=== PATIENT | male | born 1985 | race African-American/Black ===

== ENCOUNTER → 2016-10-06 | Outpatient (CLI) | payer BC ==
[~2016-10-06] MED LIST: ALBUAER2 INH; LISI20TA3 PO
[2016-10-06 12:04] LABS: ALT/SGPT 63 U/L (12-78); BLOOD UREA NITROGEN 7 mg/dl (7-18); BUN/CREATININE RATIO 5.1 (10-20); CARBON DIOXIDE 32 mmol/L (21-32); CHLORIDE 103 mmol/L (98-107); CHOLESTEROL 154 mg/dl (0-200); GLUCOSE 97 mg/dl (70-99); POTASSIUM 3.8 mmol/L (3.5-5.1); SODIUM 141 mmol/L (136-145)
[2016-10-06 12:07] LABS: ALB/GLOB RATIO 1.1 (0.9-2); ALKALINE PHOSPHATASE 56 U/L (45-117); AST/SGOT 32 U/L (15-37); CHOLESTEROL/HDL RATIO 4.5; HDL CHOLESTEROL 34 mg/dl; LDL CHOLESTEROL CALCULATED 77 mg/dl; TRIGLYCERIDES 216 mg/dl (0-150); VERY LOW DENSITY LIPOPROT CALC 43 mg/dl
[2016-10-06 13:19] LABS: CALCIUM 9.2 mg/dl (8.5-10.1)
== END | disposition home or self-care (01) ==
LOC: C.LAB1850 10:25
PROVIDERS: ATTEND Internal Medicine
DX: I10 Essential (primary) hypertension (principal)

== ENCOUNTER → 2016-11-12 | Outpatient (CLI) | payer BC ==
[~2016-11-12] VITALS: Ht 182.9 cm; Wt 117.4 kg
[2016-11-12 10:12] VITALS: BP 139/81; PULSE 71; Ht 182.9 cm; Wt 117.4 kg
== END | disposition home or self-care (01) ==
LOC: C.NEUR 09:05
PROVIDERS: ATTEND Internal Medicine Pulmonary Disease
DX: G47.33 Obstructive sleep apnea (adult) (pediatric) (principal)

== ENCOUNTER → 2016-12-24 | Outpatient (CLI) | payer BC ==
--- NOTE | 2016-12-25 06:38 | PAP/PSG TECHNICIAN REPORT ---
[facility] [address] Supervisor Chassis Assembly Polysomnogram Report Study name: None Report date: 12/25/2016 Study date: 12/24/2016 Referring Physician: MATTHEW SCHUSTER DO, DO Name: CICI DIAZ Interpreting Physician: Matthew Schuster D.O. Date of : 1985 Supervisor Chassis Assembly: Marianna Alvarado [facility] [place]. Sex: Male Age: 31 Study Type: PSG Weight: 259 lbs Height: 31 years, Height 6' 0" BMI: 35.12 Medications: BREO ELLIPTA 100-25 MCG/INH, PROAIR HFA 108 (90 BASE) MCG/ACT, LISINOPRIL 40 MG Patient History 31 yr-old male here for a baseline/split study. He has a history of some daytime sleepiness, very loud snoring, and witnessed apneas. His Casanova scale is 5. The test was started on room air. ETCO2 testing was not utilized during this study. Room 3 Parameters Monitored NPSG: E1-M2, E2-M1, Fp1-M2, Fp2-M1, F3-M2, F4-M2, F4-M1, C3-M2, C4-M2, C4-M1, O1-M2, O2-M2, O2-M1, T3-M2, T4-M1, P3-M2, P4-M1, CHIN1, CHIN2, HR, EKG, Legs, PFLOW, SNOR, FLOW, CFLOW, Tidal Volume, THOR, ABDO, SpO2, PLTH, CPRESS, ETCO2 Wave, ETCO2, pH Sleep Architecture Sleep Stages Time at Lights Off 11:05:44 PM STAGES Time (min.) TST (%) Time at Lights On 5:31:14 AM Wake 108.5 -- Total Recording Time (TRT) 385.50 min. N1 24.0 9 Total Sleep Period (TSP) 355.5 min. N2 173.5 63 Total Sleep Time (TST) 277.0min. N3 26.0 9 Awake Time 108.5 min. REM 53.5 19 Wake after Sleep Onset 78.5 min. Sleep Efficiency (SE) 72 % Sleep Onset Latency (MARGARITO) 30.0 min. Number of Stage 1 Shifts None Awakenings 11 Stage Changes 57 Number of REM periods 6 REM 53.5 19 REM Latency 72.0 min. NREM 223.5 81 Body Position Analysis Supine Right Left Side Prone Vertical Total Sleep Time (min.) 75.9 161.2 102.5 263.63 6.5 0.0 Total Sleep Time (%) 5% 58% 37% 95 0% N/A% Total Sleep Time REM (min.) 0.0 12.0 41.5 None 0.0 0.0 Total Sleep Time NREM (min.) 13.4 149.2 61.0 None 0.0 0.0 Intermittent Wake (min.) 62.6 31.7 7.7 None 6.5 0.0 Total Sleep Period (%) 16% None None None None None Arousals Myoclonus (PLM) * Events Count Index Events Count Index Spontaneous 6 1 Events Awake (PLMW) 81 44.8 Respiratory 26 5.8 Events Asleep w/ Arousal (PLMA) 12 2.6 PLM 11 3 Events Asleep w/o Arousal (PLMS) 65 14.1 Snoring 11 2 Total Asleep 77 16.7 Total 53 11 Total 158 25 Respiratory Analysis * CA OA MA CH H RERA Total Count 0 44 0 0 34 1 78 Index 0.0 9.5 0.0 0 7.4 0 17.1 Mean Duration 0.0 24.9 0.0 0.00 29.0 22.5 26.6 Longest Duration 0.0 79.8 0.0 0.00 0.0 22.5 79.8 Respiratory Event Summary Total Supine ~Supine Right Left Prone REM NREM Apneas Count 44 6 38 15 23 N/A 32 12 Index 9.5 27 9 5.6 13.5 N/A 36 3 Hypopneas (4% Desat) Count 34 9 25 4 21 N/A 18 16 Index 7.4 40.4 6 1.5 12.3 N/A 20.2 4.3 Apneas & All Hypopneas Count 78 15 63 19 44 N/A 50 28 Index 16.9 67 14 7 26 N/A 56.1 7.5 Respiratory Events (Electric Bath Attendant+All Hyp+RERA) Count 78 15 64 20 44 N/A 50 28 Index 17.1 67 15 7.4 25.8 N/A 56.1 7.8 Respiratory Related Arousal Count 26 15 19 8 11 N/A 14 13 Index 5.8 36 4 3 6 N/A 16 3 Snoring Analysis Supine Right Left Prone REM NREM Total Snore duration 61.7 min Snores count 49 1,630 482 N/A 131 2,030 2,161 Snore mean duration 1.7 Sec Snores index 220 607 282 N/A 146.9 545.0 468.1 TST with snoring (%) 22.3% Desaturation Event Summary: Minimum %SpO2 Event Count Mean/Min/Max Duration(sec.) Desaturation Index % Time In Bed > 90 68 31.2 / 4.8 / 58.8 11.9 89.7 86 - 90 12 23.3 / 13.3 / 39.3 36.7 5.1 81 - 85 6 24.1 / 13.3 / 34.8 36.2 2.6 76 - 80 1 14.0 / 14.0 / 14.0 11.3 1.4 71 - 75 1 14.0 / 14.0 / 14.0 17.5 0.9 66 - 70 0 N/A 0.0 0.2 61 - 65 0 N/A 0.0 0.0 56 - 60 0 N/A 0.0 0.0 51 - 55 0 N/A 0.0 0.0 < 50 0 N/A 0.0 0.0 Total REM NREM Awake <50% 0.0 min. 0.0 min. 0.0 min. 0.0 min. 51 - 60% 0.0 min. 0.0 min. 0.0 min. 0.0 min. 61 - 70% 0.9 min. 0.8 min. 0.0 min. 0.1 min. 71 - 80% 8.7 min. 7.7 min. 0.7 min. 0.4 min. 81 - 90% 29.6 min. 18.6 min. 8.8 min. 2.2 min. 91 - 100% 342.3 min. 26.4 min. 214.0 min. 101.9 min. Average 93 88 93 95 Minimum SpO2 65 65 78 70 Desaturation Event Index 12.3 49.3 8.9 2.2 # Desat. Events below 89% 59 38 19 2 Time(%) with Saturation below 89% 8.0 6.2 1.3 0.5 Time(min.) with Saturation below 89% 30.5 23.7 5.0 1.8 Time (mins) REM (mins) NREM (mins) % of TST SpO2 Below 90% 65 39 N26 11.7 SpO2 Below 88% 27 0 0 9 Heart Rate Analysis Min (bpm) Max (bpm) Average (bpm) Awake 46 101 65 NREM 51 89 63 REM 50 101 66 Overall 50 101 64 Supplemental O2 Values Minimum O2 level: None Value Start Time End Time Supervisor Chassis Assembly Comments Mr. Diaz slept in the right, left, supine and prone positions. Occasional cardiac arrhythmias were noted (please refer to the print out). No bruxism noted. Snoring was noted and scored as a 3-4 on a scale of 1 through 5. (0=no snoring, 5=snoring loud enough to be heard through a closed door or down the [address] way). He did not meet specific Split-Night criteria during the diagnostic portion of this study. He awoke to use the restroom one time during the night. Mr. Diaz stated that he slept about the same as usual. The final report will be interpreted and signed by a sleep physician. The completed physician report will then be placed in the patient medical record. Supervisor Chassis Assembly Comments and User Events: Comment/Event Page Number Time of Day PT CALS 202 11:01:46 PM Look Right 202 11:02:09 PM Look Left 202 11:02:11 PM Look Up 203 11:02:24 PM Look Down 203 11:02:26 PM Eyes Closed 203 11:02:40 PM Bite down on Jaw 204 11:03:03 PM Flex foot 204 11:03:10 PM Hold Breath 205 11:03:20 PM Snore sound 205 11:03:39 PM HE IS NOW WATCHING TV BEFORE SLEEP 210 11:05:56 PM HE IS NOW TRYING TO SLEEP 238 11:19:56 PM Therapy (cm H2O) 0 TIB (min.) 385.5 TST (min.) 277.0 Sleep Onset (min.) 30.0 REM Onset From Sleep (min.) 72.0 Sleep Efficiency % 72 Wakefulness (%) 28 Wakefulness (min.) 108.5 NREM 1 (%) 9 NREM 1 (min.) 24.0 NREM 2 (%) 63 NREM 2 (min.) 173.5 NREM 3 (%) 9 NREM 3 (min.) 26.0 REM (%) 19 REM (min.) 53.5 # Arousals 53 Arousal Index 11 # Snore 2,161 Snore Index 468.1 AHI 16.9 AHI Supine 67 AHI Non-Supine 14 NREM AHI 7.5 REM AHI 56.1 RDI 17.1 # Obstructive Apnea 44 # Central Apnea 0 # Mixed Apnea 0 # Hypopneas 34 RERAs 1 Total Respiratory Events 80 Time Below SpO2 89% (min.) 28.7 Mean NREM SpO2 (%) 93 Mean REM SpO2 (%) 88 Mean Sleep SpO2 (%) 92 Min NREM SpO2 (%) 78 Min REM SpO2 (%) 65 Position Supine (min.) 75.9 Position Non-supine (min.) 263.6 LM Index Sleep 16.7 LM Index NREM 12.9 LM Index REM 32.5 Mean Heart Rate (bpm) 64 Min Heart Rate (bpm) 50
--- NOTE | 2016-12-27 10:33 | Sleep Study ---
Sleep Study Report Date of Service: 12/24/2016 Sleep Study Report Clinical data: The patient is a 31-year-old male with a BMI of 35.12. He is referred by Dr. Foster with complaints of snoring, observed apnea, and daytime sleepiness. His Mcpherson Sleepiness Scale score is 5. The patient has asthma, hyperlipidemia, and hypertension as comorbidities. This was an in-lab diagnostic sleep study. Sleep architecture: The total sleep period was 355.5 minutes. The total time was 277.0 minutes. Sleep efficiency was moderately reduced to 72 percent. The sleep latency was mildly prolonged to 30 minutes. Wake after sleep onset was increased to 78.5 minutes. The REM latency was normal at 72 minutes. Sleep consisted of stage N1 9 percent, stage N2 63 percent, stage N3 9 percent, and stage REM 19 percent. Arousal data: The patient had a total of 53 arousals including 6 spontaneous arousals, 26 respiratory arousals, 11 PLM arousals, and 11 snoring arousals. The arousal index was 11. PLM data: The patient had a total of 77 periodic limb movements of sleep for an index of 16.7. There were 12 arousals for a PLM arousal index of 2.6. EKG: The underlying cardiac rhythm was normal sinus. The cardiac rates ranged from 50 to 101 beats per minute. The average heart rate was 64 beats per minute. There were a relatively mild number of extrasystoles, both PACs and PVCs. Respiratory data: The patient had a total of 78 respiratory events including 44 obstructive apneas and 34 hypopneas. Hypopneas were scored according to the 4 percent desaturation rule. The mean duration of the apneas was 24.9 seconds. The mean duration of the hypopneas was 29 seconds. The apnea-hypopnea index was moderately elevated at 16.9 events per hour. There was also 1 RERAs. Oximetry data: The average saturation for the night was 93 percent. The minimum saturation was 65 percent. There was a total of 30.5 minutes with saturations less than 89 percent. The majority the desaturations occurred during REM sleep. The average saturation during REM was only 88 percent. Cycle Consultant comments: Patient slept on the right, left, supine, and prone positions. Occasional cardiac arrhythmias were noted. Snoring was noted and scored as a 3-4 on a scale of 1 through 5. Impressions: 1. Obstructive sleep apnea-moderate Comments: Patient has moderate sleep apnea. His sleep efficiency was moderately reduced. He had a modest number of limb movements. There was a significant increase in respiratory events during REM and when supine. The apnea-hypopnea index in the supine position was 67 and the apnea-hypopnea index during REM was 56.1. His sleep efficiency was reduced due to a period of wake starting at 2:28 a.m. until 3:34 a.m.. The majority of the patient's events occurred during the 2nd half of the night and thus a split study could not be done. He had a mild number of extrasystoles as noted above. Recommendations: 1. It is advised that the patient be given a trial of nasal CPAP. 2. It would be suggested that the patient avoid sleeping in the supine position as he clearly had more events supine than in other positions. 3. Weight loss is advised in light of the elevation of body mass index of 35.12 . 4. Further suggestions will be made following the trial of nasal CPAP. The options would be for an in-lab sleep study versus treatment with auto CPAP. Copies To 1: RV. Mcknezie MD; Matthew Sandra DO
== END | disposition home or self-care (01) ==
LOC: C.NEUR 21:00
PROVIDERS: ATTEND Internal Medicine Pulmonary Disease
DX: G47.33 Obstructive sleep apnea (adult) (pediatric) (principal)

== ENCOUNTER → 2017-02-05 | Outpatient (CLI) | payer BC ==
--- NOTE | 2017-02-06 05:54 | PAP/PSG TECHNICIAN REPORT ---
[facility] App[employer] Polysomnogram Report Study name: None Report date: 02/06/2017 Study date: 02/05/2017 Referring Physician: Dr. Matthew Sandra DO Name: CICI DIAZ Interpreting Physician: Matthew Sandra D.O. Date of : 1985 Appliquer: JORGE Gamino. Sex: Male Age: 31 StudyType: PSG PAP Weight: 258 lbs 20 inches Height: 31 years, Height 6' 0" Neck Circum: BMI: 34.99 Medications: BREO ELIPTA 100-25 MCG/INH, PRO AIR HFA 108 90 BASE, LISINOPRIL 40 MG Patient History PATIENT HAD A SLEEP STUDY DONE IN DECEMBER OF 2016 AND WAS POSITIVE FOR MODERATE RAFY. HE IS HERE TODAY FOR CPAP TITRATION. ESS = 5 RM 5 Parameters Monitored NPSG: E1-M2, E2-M1, Fp1-M2, Fp2-M1, F3-M2, F4-M2, F4-M1, C3-M2, C4-M2, C4-M1, O1-M2, O2-M2, O2-M1, T3-M2, T4-M1, P3-M2, P4-M1, CHIN1, CHIN2, HR, EKG, Legs, PFLOW, SNOR, FLOW, CFLOW, Tidal Volume, THOR, ABDO, SpO2, PLTH, CPRESS, ETCO2 Wave, ETCO2, pH Sleep Architecture Sleep Stages Time at Lights Off 10:55:33 PM STAGES Time (min.) TST (%) Time at Lights On 5:26:33 AM Wake 72.5 -- Total Recording Time (TRT) 391.50 min. N1 9.0 3 Total Sleep Period (TSP) 362.5 min. N2 150.0 47 Total Sleep Time (TST) 318.5min. N3 103.5 32 Awake Time 73.0 min. REM 56.0 18 Wake after Sleep Onset 45.5 min. Sleep Efficiency (SE) 81 % Sleep Onset Latency (MARGARITO) 27.0 min. Number of Stage 1 Shifts None Awakenings 8 Stage Changes 41 Number of REM periods 3 REM 56.0 18 REM Latency 106.5 min. NREM 262.5 82 Body Position Analysis Supine Right Left Side Prone Vertical Total Sleep Time (min.) 391.0 0.0 0.0 0.00 0.0 0.0 Total Sleep Time (%) 100% 0% 0% 0 0% N/A% Total Sleep Time REM (min.) 56.0 0.0 0.0 None 0.0 0.0 Total Sleep Time NREM (min.) 262.5 0.0 0.0 None 0.0 0.0 Intermittent Wake (min.) 72.5 0.0 0.0 None 0.0 0.0 Total Sleep Period (%) 100% None None None None None Arousals Myoclonus (PLM) * Events Count Index Events Count Index Spontaneous 16 3 Events Awake (PLMW) 54 44.7 Respiratory 13 2.4 Events Asleep w/ Arousal (PLMA) 4 0.8 PLM 4 1 Events Asleep w/o Arousal (PLMS) 36 6.8 Snoring 1 0 Total Asleep 40 7.5 Total 34 6 Total 94 14 Respiratory Analysis * CA OA MA CH H RERA Total Count 0 12 0 0 77 2 89 Index 0.0 2.3 0.0 0 14.5 0 17.1 Mean Duration 0.0 14.2 0.0 0.00 20.4 16.1 19.5 Longest Duration 0.0 20.5 0.0 0.00 0.0 18.2 47.1 Respiratory Event Summary Total Supine ~Supine Right Left Prone REM NREM Apneas Count 12 12 N/A N/A N/A N/A 1 11 Index 2.3 2 N/A N/A N/A N/A 1 3 Hypopneas (4% Desat) Count 77 77 N/A N/A N/A N/A 22 55 Index 14.5 14.5 N/A N/A N/A N/A 23.6 12.6 Apneas & All Hypopneas Count 89 89 N/A N/A N/A N/A 23 66 Index 16.8 17 N/A N/A N/A N/A 24.6 15.1 Respiratory Events (Bag Loader+All Hyp+RERA) Count 89 91 N/A N/A N/A N/A 23 66 Index 17.1 17 N/A N/A N/A N/A 25.7 15.3 Respiratory Related Arousal Count 13 91 N/A N/A N/A N/A 0 13 Index 2.4 2 N/A N/A N/A N/A 0 3 Snoring Analysis Supine Right Left Prone REM NREM Total Snore duration 5.5 min Snores count 257 N/A N/A N/A 25 232 257 Snore mean duration 1.3 Sec Snores index 48 N/A N/A N/A 26.8 53.0 48.4 TST with snoring (%) 1.7% Desaturation Event Summary: Minimum %SpO2 Event Count Mean/Min/Max Duration(sec.) Desaturation Index % Time In Bed > 90 85 27.0 / 5.3 / 72.0 15.4 88.2 86 - 90 19 20.8 / 5.3 / 35.8 33.6 9.1 81 - 85 4 13.8 / 8.8 / 18.5 34.5 1.9 76 - 80 0 N/A 0.0 0.6 71 - 75 0 N/A 0.0 0.2 66 - 70 0 N/A 0.0 0.0 61 - 65 0 N/A 0.0 0.0 56 - 60 0 N/A 0.0 0.0 51 - 55 0 N/A 0.0 0.0 < 50 0 N/A 0.0 0.0 Total REM NREM Awake <50% 0.0 min. 0.0 min. 0.0 min. 0.0 min. 51 - 60% 0.0 min. 0.0 min. 0.0 min. 0.0 min. 61 - 70% 0.0 min. 0.0 min. 0.0 min. 0.0 min. 71 - 80% 3.1 min. 3.1 min. 0.0 min. 0.0 min. 81 - 90% 40.9 min. 10.8 min. 29.4 min. 0.7 min. 91 - 100% 330.6 min. 40.2 min. 227.4 min. 63.0 min. Average 93 92 93 95 Minimum SpO2 71 71 81 82 Desaturation Event Index 14.6 25.7 14.6 5.8 # Desat. Events below 89% 66 22 43 1 Time(%) with Saturation below 89% 6.4 2.9 3.4 0.1 Time(min.) with Saturation below 89% 24.0 11.0 12.6 0.4 Time (mins) REM (mins) NREM (mins) % of TST SpO2 Below 90% 79 23 N56 10.0 SpO2 Below 88% 26 0 0 5 Heart Rate Analysis Min (bpm) Max (bpm) Average (bpm) Awake 38 132 73 NREM 37 127 72 REM 37 127 71 Overall 37 127 71 Supplemental O2 Values Minimum O2 level: None Value Start Time End Time Appliquer Comments Mr. Diaz slept in the supine position. PAC's and PVC's noted. Leg movements noted. No bruxism noted. CPAP was initiated at +4 CMH2O and up-titrated to an optimal level of +19 CMH2O, which nearly eliminated all respiratory events and snoring. A Resmed Mirage Quattro full face size large mask was used during titration Mr. Diaz awoke to use the restroom 0 times during the night. Mr. Diaz stated I slept as well as I do when I am in my own bed. The final report will be interpreted and signed by a sleep physician. The completed physician report will then be placed in the patient medical record. Therapy Event: Therapy (cm H20) 4 6 8 9 10 11 Total Time at Pressure (min.) 43.0 10.7 20.2 10.2 39.7 16.5 TST at Pressure (min.) 16.0 10.7 20.2 8.7 39.7 16.5 # Periods 1 1 1 1 1 1 Sleep Onset (min.) 27.0 0.0 0.0 0.0 0.0 0.0 REM Onset (min.) N/A N/A N/A N/A N/A 9.6 Sleep Efficiency % 37 100 100 85 100 100 Wakefulness (%) 62.8 0.0 0.0 14.7 0.0 0.0 Wakefulness (min.) 27.0 0.0 0.0 1.5 0.0 0.0 NREM 1 (%) 4.7 0.0 0.0 9.8 0.0 0.0 NREM 1 (min.) 2.0 0.0 0.0 1.0 0.0 0.0 NREM 2 (%) 32.6 93.2 12.4 75.2 37.3 24.3 NREM 2 (min.) 14.0 10.0 2.5 7.7 14.8 4.0 NREM 3 (%) 0.0 6.8 87.6 0.3 62.7 34.1 NREM 3 (min.) 0.0 0.7 17.7 0.0 24.9 5.6 REM (%) 0.0 0.0 0.0 0.0 0.0 41.7 REM (min.) 0.0 0.0 0.0 0.0 0.0 6.9 # Arousals 12 1 2 5 1 2 Arousal Index 45.0 5.6 5.9 34.4 1.5 7.3 # Snore 23 75 48 8 61 27 Snore Index 86.2 419.6 142.3 55.0 92.2 98.2 AHI 86.2 61.5 29.6 41.3 4.5 43.7 AHI Supine 86.2 61.5 29.6 41.3 4.5 43.7 AHI Non-Supine N/A N/A N/A N/A N/A N/A NREM AHI 86.2 61.5 29.6 41.3 4.5 12.5 REM AHI N/A N/A N/A N/A N/A 87.3 RDI 86.2 61.5 29.6 41.3 4.5 43.7 # Obstructive 8 2 0 0 1 0 # Central Ap 0 0 0 0 0 0 # Mixed 0 0 0 0 0 0 # Hypopneas 15 9 10 6 2 12 RERAS 0 0 0 0 0 0 Total Respiratory Events 23 11 10 6 3 12 Time Below SpO2 89.00% (min.) 1.7 1.8 6.2 1.0 0.5 3.7 Mean NREM SpO2 (%) 92 90 90 93 92 93 Mean REM SpO2 (%) N/A N/A N/A N/A N/A 87 Mean Sleep SpO2 (%) 92 90 90 93 92 90 Min NREM SpO2 (%) 84 83 83 84 83 90 Min REM SpO2 (%) N/A N/A N/A N/A N/A 73 Position Supine (min.) 16.0 10.7 20.2 8.7 39.7 16.5 Position Non-supine (min.) 0.0 0.0 0.0 0.0 0.0 0.0 LM Index Sleep 48.7 44.8 3.0 48.1 4.5 3.6 LM Index NREM 48.7 44.8 3.0 48.1 4.5 0.0 LM Index REM N/A N/A N/A N/A N/A 8.7 Mean Heart Rate (bpm) 69 71 74 67 70 72 Min Heart Rate (bpm) 37 59 54 39 43 41 Therapy (cm H20) 13 15 16 17 19 Total Time at Pressure (min.) 12.8 17.6 120.4 20.2 79.5 TST at Pressure (min.) 12.8 17.6 79.4 20.2 76.5 # Periods 1 1 1 1 1 Sleep Onset (min.) 0.0 0.0 0.0 0.0 0.0 REM Onset (min.) 0.0 0.0 N/A 16.3 0.0 Sleep Efficiency % 100 100 65 100 96 Wakefulness (%) 0.0 0.0 34.1 0.0 3.8 Wakefulness (min.) 0.0 0.0 41.0 0.0 3.0 NREM 1 (%) 3.9 0.0 4.2 0.0 0.6 NREM 1 (min.) 0.5 0.0 5.0 0.0 0.5 NREM 2 (%) 7.8 64.4 27.3 80.3 44.6 NREM 2 (min.) 1.0 11.4 32.9 16.3 35.5 NREM 3 (%) 0.0 0.0 34.5 0.0 16.3 NREM 3 (min.) 0.0 0.0 41.5 0.0 13.0 REM (%) 88.3 35.6 0.0 19.7 34.6 REM (min.) 11.3 6.3 0.0 4.0 27.5 # Arousals 2 0 4 2 3 Arousal Index 9.3 0.0 3.0 5.9 2.4 # Snore 2 0 8 4 1 Snore Index 9.3 0.0 6.0 11.9 0.8 AHI 51.4 6.8 2.3 23.7 0.0 AHI Supine 51.4 6.8 2.3 23.7 0.0 AHI Non-Supine N/A N/A N/A N/A N/A NREM AHI 120.0 0.0 2.3 18.5 0.0 REM AHI 42.3 19.1 N/A 45.2 0.0 RDI 51.4 6.8 2.3 26.7 0.8 # Obstructive 0 0 0 1 0 # Central Ap 0 0 0 0 0 # Mixed 0 0 0 0 0 # Hypopneas 11 2 3 7 0 RERAS 0 0 0 1 1 Total Respiratory Events 11 2 3 9 1 Time Below SpO2 89.00% (min.) 5.0 0.2 0.1 3.1 0.1 Mean NREM SpO2 (%) 92 94 94 93 95 Mean REM SpO2 (%) 88 93 N/A 88 95 Mean Sleep SpO2 (%) 89 94 94 92 95 Min NREM SpO2 (%) 81 93 87 83 90 Min REM SpO2 (%) 71 87 N/A 79 88 Position Supine (min.) 12.8 17.6 79.4 20.2 76.5 Position Non-supine (min.) 0.0 0.0 0.0 0.0 0.0 LM Index Sleep 18.7 0.0 0.0 3.0 1.6 LM Index NREM 0.0 0.0 0.0 3.7 0.0 LM Index REM 21.2 0.0 N/A 0.0 4.4 Mean Heart Rate (bpm) 67 65 73 75 72 Min Heart Rate (bpm) 37 39 37 61 56
--- NOTE | 2017-02-07 07:21 | Sleep Study ---
Sleep Study Report Date of Service: 02/05/2017 Sleep Study Report Clinical data: The patient is a 31-year-old male with a history of snoring, observed apneas, and daytime sleepiness. His Ekron score is 5 out of a possible 24. He has a history of hypertension and asthma as comorbidities. He underwent a 1st night sleep study on 12/24/2016. This showed moderate sleep apnea with an apnea- hypopnea index of 16.9. The [facility] is [facility] a trial of nasal CPAP or BiPAP. His BMI is 35. Sleep architecture: The total sleep period was 362.5 minutes. The total sleep time was 318.5 minutes. The sleep efficiency was mildly reduced to 81 percent. The sleep latency was mildly prolonged to 27 minutes. Wake after sleep onset was 45.5 minutes. The REM latency was 106.5 minutes. There were 3 REM periods during the night. Sleep consisted of stage N1 3 percent, stage N2 47 percent, stage N3 32 percent, and stage REM 18 percent. Arousal data: The patient had a total of 34 arousals including 16 spontaneous arousals, 13 respiratory arousals, 4 PLM arousals, and 1 snoring arousal. The arousal index was 6. PLM data: The patient had a total of 40 periodic limb movements of sleep for a PLM index of 7.5. There were 4 arousals associated with limb movements for a PLM arousal index of 0.8. EKG: The underlying cardiac rhythm was normal sinus. He did have frequent extrasystoles that were mainly PACs. Cannot exclude some PVCs. The cardiac rates ranged from 37 to 127 beats per minute. The average heart rate was 71 beats per minute. Respiratory data: The patient's respiratory events were treated with nasal CPAP. There was a total of 89 respiratory events including 12 obstructive apneas and 77 hypopneas. Hypopneas were scored according to the 4 percent desaturation rule. The longest apnea was 20.5 seconds. The mean duration of the hypopneas was 20.4 seconds. The overall apnea-hypopnea index was 16.8. However at the final pressure of 16 centimeters the patient had an apnea-hypopnea index of 0. He had a total time of 79.5 minutes at that pressure. Oximetry data: The average saturation for the night was 93 percent. The minimum saturation was 71 percent. There was a total of 24 minutes with saturations less than 89 percent. This occurred prior to the patient reaching his maximal optimal pressure. There was no significant desaturations at the final pressure. Major Sales Associate comments: The patient slept in the supine position. Cardiac arrhythmia noted. Leg movements noted. No bruxism noted. CPAP was initiated at 4 centimeters and up titrated to an optimal level of 19 centimeters which nearly eliminated all respiratory events and snoring. A ResMed Mirage Quattro full face mask size large was utilized. Impressions: 1. Obstructive sleep apnea-resolved with nasal CPAP at 19 centimeters 2. Cardiac arrhythmia-PACs and PVCs Comments: Patient tolerated nasal CPAP well. There was a mild delay in sleep onset. His sleep architecture was excellent. There was a significant amount of stage N3 sleep and REM sleep. He had a moderate number of respiratory events at lower pressures but at the final pressure the sleep apnea was resolved. He did have frequent number of extrasystoles seen throughout the night. This was increased compared with his 1st night study. The arrhythmia was noted prior to the patient starting the study as well. Clinical correlation is advised in that regard. Recommendations: 1. It is advised that the patient be started on nasal CPAP at 19 centimeters. 2. It is suggested that he be ordered a ResMed Mirage Quattro full face mask size large 3. The patient has an elevated body mass index. A weight reduction program is advised. 4. If possible the patient should avoid sleeping in the supine position. He was supine for the entire night of this titration study. Typically there is less respiratory events when not in supine position. 5. Consideration is given to Holter monitor or other evaluation of the frequent extrasystoles. This is deferred to his primary physician. Copies To 1: RV. Mckenzie MD; Matthew Sandra,
== END | disposition home or self-care (01) ==
LOC: C.NEUR 21:00
PROVIDERS: ATTEND Internal Medicine Pulmonary Disease
DX: G47.33 Obstructive sleep apnea (adult) (pediatric) (principal)

== ENCOUNTER → 2017-04-30 | Outpatient (CLI) | payer BC ==
[~2017-04-30] VITALS: Ht 182.9 cm; Wt 123.7 kg
[2017-04-30 14:40] VITALS: BP 150/99; PULSE 96; Ht 182.9 cm; Wt 123.7 kg
== END | disposition home or self-care (01) ==
LOC: C.NEUR 14:29
PROVIDERS: ATTEND Internal Medicine Pulmonary Disease
DX: G47.33 Obstructive sleep apnea (adult) (pediatric) (principal); R06.83 Snoring; J45.909 Unspecified asthma, uncomplicated; E78.5 Hyperlipidemia, unspecified; I10 Essential (primary) hypertension; E66.3 Overweight; Z68.36 Body mass index [BMI] 36.0-36.9, adult

== ENCOUNTER → 2017-10-01 | Outpatient (CLI) | payer OTHER ==
--- NOTE | 2017-10-01 10:20 | DIAGNOSTIC IMAGING REPORT ---
L VENOUS DOPP LOWER EXT UNILAT CLINICAL HISTORY: M79.662 Tenderness of left [id number] pain. Edema. TECHNIQUE: Venous Doppler COMPARISON STUDY: None FINDINGS: Normal study IMPRESSION: Normal study The above report was generated using voice recognition software. It may contain grammatical, syntax or spelling errors. Electronically signed by: Sacha Jay M.D. 10/01/2017 10:19 AM Dictated Date/Time: 10/01/2017 10:19 AM
== END | disposition home or self-care (01) ==
LOC: C.ULTR 09:39
PROVIDERS: ATTEND Internal Medicine
DX: M79.662 Pain in left lower leg (principal)